=== PATIENT | female | born 1990 | race Hispanic/Latino ===

== ENCOUNTER 2017-02-17 14:42 | Emergency (ER) | payer OTHER ==
[2017-02-17 14:50] VITALS: BP 108/79; PULSE 72; RESP 18; TEMP 98; O2SAT 99
--- NOTE | 2017-02-17 15:57 | ED PDOC ---
HPI: General Adult Time Seen by Provider: 02/17/17 15:44 Chief Complaint (Nursing): Medical Clearance Chief Complaint (Provider): CO Exposure History Per: Patient History/Exam Limitations: no limitations Onset/Duration Of Symptoms: Hrs (x1) Additional Complaint(s): Ingrid Robert is a 26 y/o female presenting to ER after CO exposure. States she was in the building in a separate area. Patient denies having any symptoms. PMD: Provider TBD Past Medical History Reviewed: Historical Data, Nursing Documentation, Vital Signs Vital Signs: Last Vital Signs Temp 98.0 F 02/17/17 14:48 Pulse 72 02/17/17 14:48 Resp 18 02/17/17 14:48 BP 108/79 02/17/17 14:48 Pulse Ox 99 02/17/17 16:13 - Medical History PMH: No Chronic Diseases - Surgical History Surgical History: No Surg Hx - Family History Family History: States: Unknown Family Hx - Social History Current smoker - smoking cessation education provided: No Alcohol: None Drugs: Denies - Allergies Allergies/Adverse Reactions: Allergies Allergy/AdvReac Type Severity Reaction Status Date / Time No Known Allergies Allergy Verified 02/17/17 14:48 Review of Systems ROS Statement: Except As Marked, All Systems Reviewed And Found Negative Constitutional: Negative for: Weakness Respiratory: Negative for: Shortness of Breath Gastrointestinal: Negative for: Nausea Neurological: Negative for: Dizziness Physical Exam - Reviewed Nursing Documentation Reviewed: Yes Vital Signs Reviewed: Yes - Physical Exam Appears: Positive for: Well, Non-toxic, No Acute Distress Head Exam: Positive for: ATRAUMATIC, NORMAL INSPECTION, NORMOCEPHALIC Skin: Positive for: Normal Color Eye Exam: Positive for: Normal appearance ENT: Positive for: Normal ENT Inspection Neck: Positive for: Normal, Painless ROM Cardiovascular/Chest: Negative for: Tachycardia Respiratory: Negative for: Respiratory Distress Extremity: Positive for: Normal ROM. Negative for: Deformity Neurologic/Psych: Positive for: Alert, Oriented (x3), Gait (steady), Other ( speech is clear). Negative for: Motor/Sensory Deficits - ECG O2 Sat by Pulse Oximetry: 99 (RA) Pulse Ox Interpretation: Normal - Progress ED Course And Treament: VBG Results reviewed: ABG Carboxyhemoglobin is 0.6 Medical Decision Making Medical Decision Making: Initial CO-oximetry used to screen patients. Patient offered VBG with ABG carboxyhemoglobin analysis to confirm. CO in triage was low. Pt requesting VBG. Receiving 100% oxygen via NRB. Time: 15:49 --VBG Scribe Attestation: Documented by Beatrice Sigala, acting as a scribe for Dario Mclean PA-C Provider Scribe Attestation: All medical record entries made by the Scribe were at my direction and personally dictated by me. I have reviewed the chart and agree that the record accurately reflects my personal performance of the history, physical exam, medical decision making, and the department course for this patient. I have also personally directed, reviewed, and agree with the discharge instructions and disposition. Disposition - Clinical Impression Clinical Impression: Carbon monoxide exposure - Patient ED Disposition Is Patient to be Admitted: No - Disposition Disposition: Routine/Home Disposition Time: 16:14 Condition: FAIR Instructions: Carbon Monoxide Poisoning (ED) Forms: [employer] ([place]ian)
[2017-02-17 16:07] LABS: VENOUS BLOOD GAS BASE EXCESS 2.5 mmol/L (0.0-2.0); VENOUS BLOOD GAS PCO2 45 mmHg (40-60); VENOUS BLOOD GAS PO2 18 mm/Hg (30-55)
== END 2017-02-17 16:21 | disposition home or self-care (01) ==
LOC: H.ER 14:42
DX: T58.91XA Toxic effect of carbon monoxide from unspecified source, accidental (unintentional), initial encounter (principal); Y99.0 Civilian activity done for income or pay